=== PATIENT | female | born 1990 | race Two or more races ===

== ENCOUNTER 2017-12-24 18:27 | Observation (INO) | payer MEDICAID ==
[~2017-12-24] VITALS: Ht 167.6 cm; Wt 84.4 kg
[2017-12-24] MEDS ORDERED: LACTATED RINGERS 1,000 ML IV SCH (18:45)
[2017-12-24] MEDS ORDERED: ACETAMINOPHEN 500MG TABLET PO NR (19:00)
[2017-12-24 19:22] LABS: CLARITY URINE CLOUDY (CLEAR); COLOR URINE YELLOW (YELLOW); KETONES URINE NEGATIVE (NEGATIVE); LEUKOCYTE ESTERASE URINE TRACE (NEGATIVE); NITRITE URINE NEGATIVE (NEGATIVE); OCCULT BLOOD URINE NEGATIVE (NEGATIVE); PH URINE 7.5 (4.5-8.0); PROTEIN URINE NEGATIVE (NEGATIVE); SPECIFIC GRAVITY URINE 1.015 (1.005-1.030); UROBILINOGEN URINE 0.2 E.U./dL (0.2-1.0)
[2017-12-24] MEDS ORDERED: PREN1TAB78 MT (19:52)
== END 2017-12-24 20:30 | disposition home or self-care (01) ==
LOC: L&D 18:27
PROVIDERS: ADMIT Obstetrics & Gynecology; ATTEND Obstetrics & Gynecology
DX: O26.893 Other specified pregnancy related conditions, third trimester (principal); R10.30 Lower abdominal pain, unspecified; Z3A.30 30 weeks gestation of pregnancy
CPT/HCPCS: 81003; 99281; G0378; J7120; 96360